=== PATIENT | female | born 1985 | race Caucasian/White ===

== ENCOUNTER → 2021-09-30 09:47 | Outpatient (CLI) | payer OTHER, SELFPAY ==
--- NOTE | ~2021-09-30 | US_ITS ---
EXAMINATION: US thyroid DATE: 09/30/2021 10:01 INDICATION: Goiter. Decreased energy. TECHNIQUE: Multiple ultrasound images of the thyroid were obtained. COMPARISON: None. FINDINGS: The right thyroid lobe measures 4.2 x 1.3 x 1.5 cm. The left thyroid lobe measures 4.3 x 1.1 x 1.1 c m. The thyroid isthmus measures 0.2 cm. There is normal echotexture and echogenicity throughout the t hyroid gland. No discrete nodules identified. Normal vascular flow is present. IMPRESSION: 1. Unremarkable thyroid ultrasound findings. Reviewed, dictated and finalized at location K.
== END ==
PROVIDERS: PCP Family Medicine; Visit Provider Internal Medicine Endocrinology, Diabetes & Metabolism
DX: E04.9 Nontoxic goiter, unspecified (principal)
CPT/HCPCS: 76536